=== PATIENT | male | born 1985 | race Caucasian/White ===

== ENCOUNTER 2020-01-08 06:10 | Inpatient (IN) ==
--- NOTE | 2020-01-06 17:26 | XRay Report ---
CLINICAL INFORMATION: Preop COMPARISON: None. TECHNIQUE: PA and Lateral views FINDINGS: The heart size, mediastinum and pulmonary vessels are unremarkable. The lungs are clear. There are no effusions. The bones and soft tissues are within normal limits. IMPRESSION: Normal chest. Interpreted and Authenticated by: Chaim Escalante 01/06/20
[2020-01-06 19:52] LABS: Basophils # (Auto) 0.11 K/mcL (0.00-0.30); Basophils % (Auto) 1.6 % (0.0-2.0); Eosinophils # (Auto) 0.05 K/mcL (0.00-0.70); Eosinophils % (Auto) 0.7 % (0.0-7.0); Granulocytes % (Auto) 60.1 % (38.0-78.0); Hematocrit 48.2 % (40.1-51.0); Hemoglobin 16.6 g/dL (13.7-17.5); Lymphocytes # (Auto) 1.95 K/mcL (1.50-4.80); Mean Cell Volume 94.1 fL (80.0-100.0); Mean Corpuscular HGB Conc 34.4 g/dL (31.0-36.0); Mean Platelet Volume 8.7 fL (7.4-10.4); Monocytes # (Auto) 0.58 K/mcL (0.10-0.90); Monocytes % (Auto) 8.6 % (1.0-12.0); Platelet Count 360 K/mcL (140-440); RBC 5.12 M/mcL (4.63-6.08); Red Cell Distribution Width 13.9 % (11.5-14.5); WBC 6.7 K/mcL (4.50-11.00)
[2020-01-06 20:08] LABS: ALT/SGPT 27 U/l (0-40); AST/SGOT 18 U/l (0-37); Albumin 4.2 gm/dL (3.2-5.2); Albumin/Globulin Ratio 1.4 (1.0-2.3); Alkaline Phosphatase 67 U/L (39-117); Bilirubin,Total 0.3 mg/dL (0.0-1.0); Blood Urea Nitrogen 21 mg/dl (6-20); Calcium 9.1 mg/dl (8.6-10.4); Carbon Dioxide 27 mmol/L (22-30); Chloride 100 mmol/L (96-108); Globulin 3.1 gm/dL (2.2-3.7); Glomerular Filtration Rate 66; Glucose 95 mg/dL (70-105)
[2020-01-06 20:16] LABS: INR 0.9 (0.9-1.1); Prothrombin Time 12.9 sec (11.9-14.5)
[2020-01-08] MEDS ORDERED: VANCOMYCIN 1,000 MG in 0.9 % SODIUM CHLORIDE 250 ML IV SCH (06:45)
[2020-01-08] MEDS ORDERED: cefTRIAXone 1 GM VIAL IV SCH (07:00)
--- NOTE | 2020-01-08 08:58 | Brief Operative Note ---
Brief Operative Note Date of procedure: 01/08/20 Pre-op diagnosis: RIGHT INGUINAL HERNIA Post-op diagnosis: other (RIGHT INGUINAL HERNIA ,INDIRECT WITH LIPOMA OF THE CORD) Procedure: RIGHT INGUINAL HERNIA REPAIR Grafts/Implants: Yes (SURGIMESH) Anesthesia: GLMA Complications: none Surgeon: Carlos Hollis Estimated blood loss (cc): 10 Specimens Removed/Pathology: none sent Condition: stable Disposition: PACU
[2020-01-08] MEDS ORDERED: PHENYLEPHRINE 10 MG/ML VIAL IV ONE (09:24)
[2020-01-08] MEDS ORDERED: ONDANSETRON 4 MG/2 ML VIAL IV ONE (09:24)
[2020-01-08] MEDS ORDERED: LIDOCAINE HCL/PF 100 MG/5 ML SYRINGE IV ONE (09:24)
[2020-01-08] MEDS ORDERED: SUGAMMADEX SODIUM 200 MG/2 ML VIAL IV ONE (09:24)
[2020-01-08] MEDS ORDERED: MIDAZOLAM 2 MG/2 ML VIAL IV ONE (09:24)
[2020-01-08] MEDS ORDERED: fentaNYL 100 MCG/2 ML VIAL IV ONE (09:24)
[2020-01-08] MEDS ORDERED: DEXAMETHASONE 10 MG/ML VIAL IV ONE (09:24)
[2020-01-08] MEDS ORDERED: PROPOFOL 200 MG/20 ML VIAL IV ONE (09:24)
[2020-01-08] MEDS ORDERED: GLYCOPYRROLATE 0.2 MG/ML VIAL IV ONE (09:24)
[2020-01-08] MEDS ORDERED: KETAMINE 100 MG/ML ML IV ONE (09:24)
[2020-01-08] MEDS ORDERED: ROCURONIUM 10 MG/ML ML IV ONE (09:24)
[2020-01-08] MEDS ORDERED: BACITRACIN 50,000 UNIT VIAL IR ONE (10:30)
[2020-01-08] MEDS ORDERED: MEPERIDINE 25 MG/ML SYRINGE IV PRN (10:39)
[2020-01-08] MEDS ORDERED: KETOROLAC 30 MG/ML VIAL IV PRN (10:39)
[2020-01-08] MEDS ORDERED: IPRATROPIUM/ALBUTEROL 3 ML AMPUL.NEB NEB PRN (10:39)
[2020-01-08] MEDS ORDERED: ACETAMINOPHEN 1,000 MG/100 ML BOTTLE IV ONE (10:39)
[2020-01-08] MEDS ORDERED: LORazepam 2 MG/ML VIAL IV PRN (10:39)
[2020-01-08] MEDS ORDERED: ONDANSETRON 4 MG/2 ML VIAL IV PRN (10:39)
[2020-01-08] MEDS ORDERED: LACTATED RINGERS 1,000 ML IV SCH (10:45)
--- NOTE | 2020-01-08 11:02 | Brief Operative Note ---
Brief Operative Note Date of procedure: 01/08/20 Pre-op diagnosis: incarcerated ventral hernia Post-op diagnosis: same (incarcerated ventral hernia) Procedure: ventral hernia repair with mesh Grafts/Implants: Yes (surgimesh) Anesthesia: GLMA Findings: incarcerated omentum in large hernia sac Complications: none Surgeon: Carlos Hollis Estimated blood loss (cc): 20 Specimens Removed/Pathology: none sent Condition: stable Disposition: PACU
[2020-01-08] MEDS: fentaNYL 100 MCG/2 ML VIAL IV PRN ×2 (11:21→11:38)
[2020-01-08] MEDS ORDERED: PROMETHAZINE 25 MG TABLET PO PRN (12:14)
[2020-01-08] MEDS ORDERED: oxyCODONE HCL 5 MG TABLET PO PRN (12:15)
[2020-01-08] MEDS ORDERED: PROMETHAZINE 25 MG/ML VIAL IV PRN (15:45)
--- NOTE | 2020-02-01 07:21 | Operative Note ---
DATE OF OPERATION: 01/08/2020 PREOPERATIVE DIAGNOSIS: Incarcerated ventral hernia. POSTOPERATIVE DIAGNOSIS: Incarcerated ventral hernia. PROCEDURE: Ventral hernia repair with mesh. SURGEON: Carlos Hollis MD FINDINGS: Incarcerated omentum and a large hernia sac. DESCRIPTION OF PROCEDURE: Under general anesthesia, the patient's abdomen was prepped and draped in a sterile field. A midline supraumbilical incision was made over the large hernia sac. The incision was extended through the subcutaneous fat down to the hernia sac. The sac was circumferentially dissected down to the fascia. The neck of the sac was about 7 cm. The sac and its contents were pushed back into the peritoneal cavity. A #7 circular skirted Surgimesh graft was chosen. It was sutured circumferentially using interrupted 0 Prolene and these were tied. Irrigation was carried out and the fascia and peritoneum were closed over the mesh with interrupted #1 Prolene. Irrigation was carried out and the subcutaneous tissue was closed in two layers using 2-0 Monocryl. Skin was closed with maryam. The patient tolerated the procedure well. Tegaderm dressing was placed. She was awakened and transferred to a bed and taken to the postanesthetic care unit in stable, satisfactory condition. LCS:pankaj Job ID: [id number] Doc ID: [id number] Carlos Hollis M.D.
== END 2020-01-09 12:41 | disposition home or self-care (01) | DRG 355 ==
LOC: MEDSUR 06:10 → EDSTATUS 09:30
PROVIDERS: ADMIT Family Medicine Adult Medicine; ATTEND Family Medicine Adult Medicine